=== PATIENT | male | born 1955 | race Caucasian/White ===

== ENCOUNTER 2017-01-08 14:43 | Emergency (ER) | payer OTHER ==
[2017-01-08 16:38] LABS: HEMOGLOBIN 15.7 gm/dl (14.0-17.5); RED BLOOD COUNT 5.1 M/UL (4.20-5.50); WHITE BLOOD COUNT 8.8 K/UL (4.5-11.0)
== END 2017-01-08 19:22 | disposition home or self-care (01) ==
LOC: ER1 14:43
PROVIDERS: Family Medicine
DX: E86.0 Dehydration (principal); R11.2 Nausea with vomiting, unspecified; R19.7 Diarrhea, unspecified; I10 Essential (primary) hypertension
CPT/HCPCS: 36415; 74022; 80053; 82150; 83690; 85025; 96361; 96374; 99284; J2405

== ENCOUNTER 2020-09-08 01:30 | Emergency (ER) | payer OTHER ==
[~2020-09-08 01:30] MED LIST: ALL DAY ALLERGY10 M2 PO; ANTIVERT 25MG T25 MG PO; AUGMENTIN 875-1 EACH PO; CELEXA20 MG PO; LOPRESSOR 25 MG25 MG PO; OMEPRAZOLE20 MG PO; PRINIVIL20 MG PO; SINGULAIR10 MG PO; ZOCOR20 MG PO
[2020-09-08 05:21] LABS: HEMOGLOBIN 15.3 gm/dl (14.0-17.5); RED BLOOD COUNT 4.91 M/UL (4.20-5.50); WHITE BLOOD COUNT 12.5 K/UL (4.5-11.0)
[2020-09-08 05:42] LABS: BUN/CREATININE RATIO 24 (0-10)
[2020-09-08] MEDS ORDERED: ZOFRAN ODT 4 MG4 MG PO (06:44)
== END 2020-09-08 06:50 | disposition home or self-care (01) ==
LOC: ER1 01:30
PROVIDERS: Family Medicine
DX: U07.1 COVID-19 (principal); I10 Essential (primary) hypertension; E78.5 Hyperlipidemia, unspecified
CPT/HCPCS: 80053; 83690; 85025; 96374; 96375; 99284; J1100; J2405; J7030